=== PATIENT | male | born 1945 | race Caucasian/White ===

== ENCOUNTER 2018-09-03 09:16 | Outpatient (CLI) | payer MEDICARE ==
[~2018-09-03 09:16] MED LIST: ABX; ASPIR 8181 MG PO; BENICAR20 MG PO; PROSTATE MED ORAL; ZANTAC 7575 MG PO; ZOCOR20 M1 PO; [UNRECOGNIZED DRUG - OTHER] PO
[2018-09-03 09:42] VITALS: BP 138/77
[2018-09-03] MEDS ORDERED: AMLODIPINE BESYL5 MG ORAL (09:45)
[2018-09-03] MEDS ORDERED: ATORVASTATIN CA20 MG ORAL (09:45)
[2018-09-03] MEDS ORDERED: LEXAPRO10 MG ORAL (09:45)
--- NOTE | 2018-09-03 10:12 | GI Initial Consult Note ---
History of Present Illness General Date patient seen: Sep 03, 2018 Time patient seen: 10:05 Reason for Consultation: COLONOSCOPY Present Illness HPI 73 year old male patient, known to us presents today routine check up. The patient last EGD / colonoscopy was performed in 2012 in which he had gastritis, one colonic polyp and internal hemorrhoids. At the time, the patient had complained of weight loss. He also undergone a capsule endoscopy by us, which was normal. The patient also had a normal EUS the same year in 2012. The patient was seen in 2015 for abdominal pain of unknown etiology, with possible abscess. An MRI was ordered, but never performed. Today, the patient denies any complaints; no abdominal pain, N/V/D or constipation. Denies any unintentional weight loss or changes in dietary habits. No signs of abuse or neglect. Patient is not fall risk. Home Meds Reported Medications Amlodipine Besylate* (AMLODIPINE BESYLATE*) 5 Mg Tablet, 5 MG ORAL DAILY, TAB 09/03/18 Escitalopram Oxalate* (LEXAPRO*) 10 Mg Tablet, 10 MG ORAL DAILY, TAB 09/03/18 Atorvastatin Calcium* (ATORVASTATIN CALCIUM*) 20 Mg Tablet, 20 MG ORAL BEDTIME, TAB 09/03/18 Aspirin* (ASPIR 81*) 81 Mg Tablet.dr, 81 MG PO DAILY, TAB 10/21/13 Med list reviewed/reconciled: Yes Allergies: Coded Allergies: No Known Allergies (Unverified , 10/21/13) Patient History History Provided By: Patient, Medical Record PMH Narrative Gastritis Colon polyp Abscess Epigastric pain Weight Loss HLD HTN Depression Social History: Denies: smoking, alcohol use, drug use, other Review of Systems All Other Systems: negative except mentioned in HPI Physical Exam Vital Signs Date Time Temp Pulse Resp B/P (MAP) Pulse Ox O2 Delivery O2 Flow Rate FiO2 09/03/18 09:42 98.2 56 18 138/77 96 98.2 Sp02 EP Interpretation: reviewed, normal General Appearance: well appearing, no apparent distress, alert Head: normocephalic EENT: PERRL/EOMI, normal ENT inspection Neck: supple Respiratory: normal breath sounds, no respiratory distress Cardiovascular: normal rate Gastrointestinal: normal inspection, non tender, soft, normal bowel sounds, non -distended Rectal: deferred Genitourinary: deferred Musculoskeletal: normal inspection, back normal Neurologic: normal inspection, alert, oriented x3, responsive Psychiatric: normal inspection, judgement/insight normal, memory normal Skin: normal inspection, normal color, no rash, warm/dry, palpation normal, well hydrated Lymphatic: normal inspection, no adenopathy GI: Plan Problems: (1) HLD (hyperlipidemia) (2) HTN (hypertension) (3) Depressed (4) Colon polyp (5) Guaiac positive stools (6) Abdominal pain of unknown etiology Plan EGD/colonoscopy scheduled 09/12/18. - CLD & (Nulytely/Suprep/Movi-Prep) prep instructions given and acknowledged by patient. - NPO @ [place] day prior procedure explained. Seen with Dr. Saunders. Thank you for this patient referral. The patient was seen and examined at bedside and all new and available data was reviewed in the patients chart. I agree with the above findings, impression and plan. (Patient seen earlier today. Signature stamp does not reflect patient encounter time.). - MD Elodia PulliamHonorhealth Deer Valley Medical CenterLauri INSURANCE [employer]PERATIONS REP Sep 03, 2018 10:12
== END 2018-09-03 09:46 | disposition home or self-care (01) ==
LOC: PAN 09:16
DX: R10.9 Unspecified abdominal pain (principal); R19.5 Other fecal abnormalities; K63.5 Polyp of colon; I10 Essential (primary) hypertension; E78.5 Hyperlipidemia, unspecified; F32.9 Major depressive disorder, single episode, unspecified
CPT/HCPCS: 99212

== ENCOUNTER 2018-09-13 08:07 | Day surgery (SDC) | payer MEDICARE ==
[~2018-09-13] VITALS: Ht 174 cm; Wt 90.7 kg
[2018-09-13] VITALS (10 sets, daily range): BP systolic 130–146; BP diastolic 40–82
[~2018-09-13 08:07] MED LIST changes: +AMLODIPINE BESYL5 MG ORAL; +ATORVASTATIN CA20 MG ORAL; +LANSOPRAZOLE30 MG ORAL; +LEXAPRO10 MG ORAL; +LISINOPRIL20 MG ORAL; +LORAZEPAM1 MG ORAL; +MOVIPREP POWDE1 EACH PO
--- NOTE | 2018-09-13 09:13 | Short Stay Surgery H&P ---
History of Present Illness History of Present Illness Chief Complaint see recent office note HPI Silvano Nolasco is a 73 year old male who was admitted on for Screening Colonoscopy Patient History Allergies: Coded Allergies: No Known Allergies (Unverified , 09/13/18) Medication History Scheduled Amlodipine Besylate* (Amlodipine Besylate*), 5 MG ORAL DAILY, (Reported) Aspirin* (Aspir 81*), 81 MG PO DAILY, (Reported) Atorvastatin Calcium* (Atorvastatin Calcium*), 20 MG ORAL BEDTIME, (Reported) Escitalopram Oxalate* (Lexapro*), 10 MG ORAL DAILY, (Reported) Lisinopril (Lisinopril*), 20 MG ORAL DAILY, (Reported) Lorazepam* (Lorazepam*), 1 MG ORAL PRN, (Reported) Miscellaneous Medications [id number]/Sod Sul/Nacl/Asb/C/Kcl (Moviprep Powder Packet), 1 EACH PO, (Reported) Discontinued Medications Lansoprazole* (Lansoprazole*), 30 MG ORAL DAILY, (Reported) Discontinued Reason: Pt stopped taking med Physical Exam Vital Signs Last Vital Signs Date Time Temp Pulse Resp B/P (MAP) Pulse Ox O2 Delivery O2 Flow Rate FiO2 09/13/18 08:35 Room Air 09/13/18 08:33 98.9 56 18 143/79 98 Plan Attestation Are the patient's medical conditions optimized for surgery? Santo Saunders MD Sep 13, 2018 09:13
--- NOTE | 2018-09-13 09:13 | Pre-Procedure Note/Attestation ---
Pre-Procedure Note/Attestation Complete Prior to Procedure Planned Procedure: not applicable Procedure Narrative: esophagogastroduodenoscopy and colonoscopy Indications for Procedure Pre-Operative Diagnosis: screening colon, GERD Attestation I attest that I discussed the nature of the procedure; its benefits; risks and complications; and alternatives (and the risks and benefits of such alternatives ), prior to the procedure, with the patient (or the patient's legal entry level account representative). I attest that, if there was a reasonable possibility of needing a blood transfusion, the patient (or the patient's legal entry level account representative) was given the [facility] standardized written summary, pursuant to the [place] Blood Safety Act ([place] Health and Safety Code # 1645, as amended). I attest that I re-evaluated the patient just prior to the surgery and that there has been no change in the patient's H&P, except as documented below: Santo Saunders MD Sep 13, 2018 09:13
--- NOTE | 2018-09-13 10:12 | Immediate Post-Op Evaluation ---
Immediate Post-Op Evalulation Immediate Post-Op Evalulation Procedure: egd/colonoscopy Date of Evaluation: Sep 13, 2018 Time of Evaluation: 10:05 IV Fluids: 400 Blood Pressure Systolic: 144 Blood Pressure Diastolic: 65 Pulse Rate: 74 Respiratory Rate: 14 O2 Sat by Pulse Oximetry: 99 Temperature (Fahrenheit): 97.5 Nausea: No Vomiting: No Complications none Patient Status: awake, reacts, patent Hydration Status: adequate Drug: none Lorin Jennings CRNA Sep 13, 2018 10:12
--- NOTE | 2018-09-13 10:13 | Endoscopy Procedure Note ---
Endoscopy Procedure Note General Indication for Procedure: screening colon, GERD Procedures Performed: EGD, colonoscopy Operative Findings/Diagnosis: 3 colon polyps Specimen: yes Pt Tolerated Procedure Well: Yes Estimated Blood Loss: none Anesthesia Anesthesiologist: pam Anesthesia: MAC Inserted Devices Implant(s) used?: No Quality Quality of Bowel Preparation: Good Did scope reach the cecum?: Yes Was there any complications?: No GI Core Measures 50 yrs or older w/o bx or poly: No 10yrs. F/U not recommended: Yes If not recommended, why?: Above average risk 10 yrs. F/U needed: Yes 18 years or older w/prev. colo: Yes <3yrs. since last colonoscopy: No Santo Saunders MD Sep 13, 2018 10:13
--- NOTE | 2018-09-13 10:14 | Anethesia Preoperative Eval ---
Anesthesia Pre-op PMH/ROS General Date of Evaluation: Sep 13, 2018 Time of Evaluation: 09:25 Anesthesiologist: kam ASA Score: ASA 2 Mallampati Score Class I : Soft palate, uvula, fauces, pillars visible Class II: Soft palate, uvula, fauces visible Class III: Soft palate, base of uvula visible Class IV: Only hard plate visible Mallampati Classification: Class III Surgeon: frank Diagnosis: screening Surgical Procedure: EGD/Colonoscopy Anesthesia History: none Family History: no anesthesia problems Allergies: Coded Allergies: No Known Allergies (Unverified , 09/13/18) Medications: see eMAR Patient NPO?: Yes Past Medical History Cardiovascular: Reports: HTN Gastrointestinal/Genitourinary: Reports: GERD; Denies: CRI, ESRD, other Neurologic/Psychiatric: Denies: dementia, CVA, depression/anxiety, TIA, other Endocrine: Denies: DM, hypothyroidism, steroids, other HEENT: Denies: cataract (L), cataract (R), glaucoma, GRINDSTONE (L), GRINDSTONE (R), other Hematology/Immune: Denies: anemia, DVT, bleeding disorder, other Musculoskeletal/Integumentary: Denies: OA, RA, DJD, DDD, edema, other Other: obesity Anesthesia Pre-op Phys. Exam Physician Exam Last Vital Signs Date Time Temp Pulse Resp B/P (MAP) Pulse Ox O2 Delivery O2 Flow Rate FiO2 09/13/18 08:35 Room Air 09/13/18 08:33 98.9 56 18 143/79 98 Constitutional: NAD Neurologic: CN 2-12 intact Cardiovascular: RRR Respiratory: CTA Gastrointestinal: S/NT/ND Airway Exam Mallampati Classification 3 Mallampati Score: Class III MO: full Neck: thick ROM: full Anesthesia Pre-op A/P Studies Pre-op Studies: EKG - avb 1 Risk Assessment & Plan Assessment: denies cp/sob Plan: mac Status Change Before Surgery: No Pre-Antibiotics Drug: Lorin Martinez CRNA Sep 13, 2018 10:14
--- NOTE | 2018-09-13 12:05 | 48 Hour Post Anesthesia Eval ---
Post Anesthesia Evaluation Procedure: egd/colonoscopy Date of Evaluation: Sep 13, 2018 Time of Evaluation: 12:05 Blood Pressure Systolic: 138 0: 74 Pulse Rate: 56 Respiratory Rate: 14 O2 Sat by Pulse Oximetry: 98 Airway: patent Nausea: No Vomiting: No Hydration Status: adequate Cardiopulmonary Status: stable Mental Status/LOC: patient returned to baseline Follow-up Care/Observations: na Post-Anesthesia Complications: none Follow-up care needed: N/A Lorin Jennings CRNA Sep 13, 2018 12:05
--- NOTE | 2018-09-13 19:00 | Procedure Note ---
DATE OF PROCEDURE: 09/13/2018 SURGEON: Santo Saunders M.D. ANESTHESIOLOGIST: Lorin BRITT. REFERRING PHYSICIAN: Robby Morillo M.D. PROCEDURE: Upper endoscopy with biopsy and colonoscopy with biopsy. ANESTHESIA: Per Lorin BRITT. INSTRUMENT: Olympus adult flexible upper endoscope and colonoscope. INDICATION: Screening colonoscopy evaluation, chronic GERD. The procedure, risks, benefits, and possible consequences, including hemorrhage, aspiration, perforation and infection, and alternative treatments, were explained to the patient/legal guardian by Dr. Santo Saunders and the patient/legal guardian understood and accepted these risks. DESCRIPTION OF PROCEDURE: After informed consent was obtained and the patient was adequately sedated, Olympus upper endoscope was advanced from the mouth into the second portion of the duodenum and retroflexion was performed in the stomach. The patient had evidence of diffuse gastritis. Random biopsy from antrum and body was obtained to rule out H. pylori infection. The patient also had evidence of a small hiatal hernia. There were some changes in the esophagus suspicious for possible eosinophilic esophagitis, so biopsy from distal esophagus was obtained. The patient tolerated the procedure very well without any complication. At this time, the upper endoscope was retrieved. The patient was turned over for colonoscopy. First, rectal exam was performed which was positive for internal hemorrhoids. Then, the scope was advanced from the rectum into the cecum and then subsequently to terminal ileum. Quality of prep overall was very good. The patient had three polyps in this colonoscopy examination, one in the proximal ascending colon and two in the transverse colon. All three were small and removed with the cold biopsy forceps technique. The rest of the examination grossly looked within normal limit. Retroflexion of rectum showed evidence of internal hemorrhoids. SUMMARY OF FINDINGS: 1. Small hiatal hernia. 2. Gastritis, status post biopsy. 3. Status post biopsy of the esophagus. 4. Three colonic polyps removed, see above for details. 5. Internal hemorrhoids. RECOMMENDATIONS: 1. Follow up biopsy results and treat accordingly. 2. Given three polyps, we recommend repeat colonoscopy in 3 years. I want to thank, Dr. Robby Morillo, for this kind referral. Santo Matt Saunders DR: Tristan JOB#: [id number] CC: Robby Morillo M.D.; Fax#: [phone]
== END 2018-09-13 11:05 | disposition home or self-care (01) ==
LOC: GAS 08:07
DX: Z12.11 Encounter for screening for malignant neoplasm of colon (principal); K64.8 Other hemorrhoids; D12.2 Benign neoplasm of ascending colon; D12.3 Benign neoplasm of transverse colon; K21.9 Gastro-esophageal reflux disease without esophagitis; K29.50 Unspecified chronic gastritis without bleeding; K44.9 Diaphragmatic hernia without obstruction or gangrene; I10 Essential (primary) hypertension; E66.9 Obesity, unspecified; Z79.82 Long term (current) use of aspirin
CPT/HCPCS: 94003; 94150

== ENCOUNTER 2018-10-03 10:38 | Outpatient (CLI) | payer MEDICARE ==
[2018-10-03 15:11] VITALS: BP 132/78
--- NOTE | 2018-10-03 22:57 | GI Progress Note ---
Assessment/Plan Problems: (1) Abdominal pain ICD Codes: R10.9 - Abdominal pain SNOMED: 63348445 (2) Gastritis ICD Codes: K29.70 - Gastritis SNOMED: 0591509 (3) Guaiac positive stools ICD Codes: R19.5 - Guaiac positive stools SNOMED: 05403365 Status: stable Status Narrative Seen with Dr. Saunders. Assessment/Plan SUMMARY OF FINDINGS reviewed with patient: 1. Small hiatal hernia. 2. Gastritis, status post biopsy. 3. Status post biopsy of the esophagus. 4. Three colonic polyps removed, see above for details. 5. Internal hemorrhoids. RECOMMENDATIONS: 1. Follow up biopsy results and treat accordingly. >> negative 2. Given three polyps, we recommend repeat colonoscopy in 3 years. RTC prn The patient was seen and examined at bedside and all new and available data was reviewed in the patients chart. I agree with the above findings, impression and plan. (Patient seen earlier today. Signature stamp does not reflect patient encounter time.). - Santo Saunders MD Subjective Gastrointestinal/Abdominal: Reports: no symptoms Objective Last 24 Hour Vital Signs Date Time Temp Pulse Resp B/P (MAP) Pulse Ox O2 Delivery O2 Flow Rate FiO2 10/03/18 15:11 97.8 62 132/78 94 General Appearance: WD/WN, no apparent distress, alert Cardiovascular: normal rate Respiratory/Chest: normal breath sounds, no respiratory distress Abdominal Exam: normal bowel sounds, non tender, soft Extremities: normal range of motion, non-tender Rahul Clifton EDITOR [employer]ODUCER Oct 03, 2018 22:57
== END 2018-10-03 11:08 | disposition home or self-care (01) ==
LOC: PAN 10:38
DX: R10.9 Unspecified abdominal pain (principal); K29.70 Gastritis, unspecified, without bleeding; R19.5 Other fecal abnormalities; K44.9 Diaphragmatic hernia without obstruction or gangrene; K64.8 Other hemorrhoids
CPT/HCPCS: 99212